=== PATIENT | female | born 1985 | race Hispanic/Latino ===

== ENCOUNTER 2023-06-10 13:35 | Emergency (ER) | payer OTHER, SELFPAY ==
--- NOTE | ~2023-06-10 | XR_ITS ---
EXAMINATION: XR elbow LT min 3V DATE: 06/10/2023 15:28 INDICATION: Left elbow injury and pain. TECHNIQUE: 3 views of left elbow were obtained. COMPARISON: None. FINDINGS: Bone alignment is normal. No fracture. Joint spaces are normal. No elbow joint effusion. IMPRESSION: 1. No fracture. Reviewed, dictated and finalized at location A. L PIN WORKER IMPRESSION: 1. No fracture.
--- NOTE | ~2023-06-10 | XR_ITS ---
EXAMINATION: XR wrist LT min 3V DATE: 06/10/2023 15:28 INDICATION: Left wrist injury and pain. TECHNIQUE: 3 views of left wrist were obtained. COMPARISON: None. FINDINGS: Bone alignment is normal. No fracture. Joint spaces are normal. IMPRESSION: 1. Normal left wrist. Reviewed, dictated and finalized at location A. [employer] IMPRESSION: 1. Normal left wrist.
--- NOTE | ~2023-06-10 | CT_ITS ---
EXAMINATION: CT brain wo con DATE: 06/10/2023 15:19 INDICATION: Head injury. TECHNIQUE: Computed tomography (CT) of the head was performed without intravenous contrast. The mA wa s adjusted according to patient size. Iterative reconstruction technique was employed. The dose-lengt h product was 605.33 mGy-cm. COMPARISON: None FINDINGS: There is no intracranial hemorrhage, acute infarction, or abnormal intracranial mass lesion . The ventricles are normal in size. The paranasal sinuses are clear. The mastoid air cells are remedios l. The orbits are normal. IMPRESSION: 1. Normal brain. Reviewed, dictated and finalized at location A. LE SURFACE OPERATOR IMPRESSION: 1. Normal brain.
--- NOTE | ~2023-06-10 | XR_ITS ---
EXAMINATION: XR shoulder LT min 2V DATE: 06/10/2023 15:27 INDICATION: Left shoulder injury and pain. TECHNIQUE: 4 views of left shoulder were obtained. COMPARISON: None. FINDINGS: Bone alignment is normal. No fracture. Joint spaces are normal. IMPRESSION: 1. Normal left shoulder. Reviewed, dictated and finalized at location A. R BISQUE KILN IMPRESSION: 1. Normal left shoulder.
[2023-06-10 13:45] VITALS: BP 150/65; PULSE 64; RESP 16; TEMP 36.4; O2SAT 100
[2023-06-10] MEDS: ACETAMINOPHEN 500 MG TABLET 1000 MG PO (15:03)
--- NOTE | 2023-06-10 15:11 | ED.UPPEXIN ---
HPI - Extremity Injury (Upper) General Chief Complaint: Extremity Injury, Upper Stated Complaint: left arm pain Time Seen by Provider: 06/10/23 14:06 History of Present Illness HPI narrative: 38-year-old female presents to the emergency department after head injury that occurred today at work. Patient states a [id number] door fell onto her head. She is reporting pain to her left parietal area. Also states that hit her left upper extremity. She is reporting pain or shoulder, proximal forearm and wrist. Denies loss of consciousness, focal numbness or weakness. She is not anticoagulated. Related Data Allergies Allergy/AdvReac Type Severity Reaction Status Date / Time No Known Allergies Allergy Verified 06/10/23 14:01 Review of Systems Review of Systems: CONSTITUTIONAL: Denies fever, chills, or sweats. EYES: Denies visual changes, redness, or discharge. ENT: Denies rhinorrhea, congestion, sore throat, or otalgia. CARDIOVASCULAR: Denies chest pain, palpitations, or edema. RESPIRATORY: Denies cough or dyspnea. GASTROINTESTINAL: Denies abdominal pain, nausea, vomiting, or diarrhea. GENITOURINARY: Denies dysuria or hematuria. SKIN: Denies rash or itching. MUSCULOSKELETAL: See HPI NEUROLOGIC: see HPI PSYCHIATRIC: Denies anxiety or depression. Exam Narrative: GENERAL: Well-appearing, well-nourished, and in no acute distress. HEAD: Normocephalic, atraumatic. tenderness to the left parietal scalp without overlying hematoma, ecchymosis, laceration or abrasion. EYES: PERRLA and EOMI. ENT: Nares clear, no rhinorrhea or epistaxis. Mucous membranes moist. NECK: Supple. CHEST: Clear to auscultation. No respiratory distress. HEART: Regular rate and rhythm. No murmur heard. Normal peripheral pulses. ABDOMEN: Soft, nontender, nondistended, normal active bowel sounds. EXTREMITIES: Generalized tenderness to the left shoulder, proximal forearm and distal radius. There is ecchymosis , superficial abrasions and mild swelling to the proximal radius with tenderness to palpation. No tenderness to metacarpals or fingers. No scaphoid tenderness. Radial pulse 2 +. Sensation intact throughout. SKIN: Warm, dry, no rash. NEURO: No focal deficits. Alert and oriented x3. Cranial nerves 2-12 intact. Strength 5/5 in BUE and BLE. Sensation intact throughout. Course Vital Signs Vital signs: Vital Signs Temperature 97.6 F 06/10/23 13:45 Pulse Rate 64 06/10/23 13:45 Respiratory Rate 16 06/10/23 13:45 Blood Pressure 150/65 H 06/10/23 13:45 Pulse Oximetry 100 06/10/23 13:45 Temperature 97.6 F 06/10/23 13:45 Pulse Rate 64 06/10/23 13:45 Respiratory Rate 16 06/10/23 13:45 Blood Pressure 150/65 H 06/10/23 13:45 Pulse Oximetry 100 06/10/23 13:45 MDM - Extremity Injury (Upper) MDM Narrative Medical decision making narrative: 38-year-old female presents to the emergency department after a head injury and pain to her left upper extremity after an injury that occurred at work earlier today. See HPI for further history. Triage vital significant for elevated blood pressure, otherwise unremarkable. She is neurovascularly intact. Exam is significant for the above. CT brain is unremarkable. X-rays of the left shoulder, elbow and wrist are unremarkable. Imaging discussed with the patient. Discussed strict ED return precautions and concussion management. Encouraged close follow-up with PCP. She is agreeable with the plan verbalized understanding. Discharged in stable condition Discharge Plan Discharge Clinical Impression: Closed head injury Qualifiers: Encounter type: initial encounter Qualified Code(s): S09.90XA - Unspecified injury of head, initial encounter Contusion of forearm Qualifiers: Encounter type: initial encounter Laterality: left Qualified Code(s): S50.12XA - Contusion of left forearm, initial encounter Patient Disposition: Home, Self-Care Condition: Stable Inst
[2023-06-10 16:21] VITALS: BP 126/90; PULSE 58; RESP 14; TEMP 36.4; O2SAT 100
== END 2023-06-10 16:23 | disposition home or self-care (01) ==
PROVIDERS: Emergency Provider Physician Assistant
DX: S09.90XA Unspecified injury of head, initial encounter (principal); S50.12XA Contusion of left forearm, initial encounter; W20.8XXA Other cause of strike by thrown, projected or falling object, initial encounter
CPT/HCPCS: 70450; 73030; 73080; 73110; 99284; A9270

== ENCOUNTER 2023-08-17 17:55 | Emergency (ER) | payer SELFPAY ==
--- NOTE | ~2023-08-17 | US_ITS ---
EXAMINATION: US OB <=14 wk fetus w TV INDICATION: vag bleeding X2w, +beta, r/o ectopic TECHNIQUE: Sonography of the pelvis was performed by transabdominal and transvaginal techniques. COMPARISON: None. RESULT: Uterus: 10.8 x 5.1 x 8.2 cm. Anteverted. 2.4 cm anterior intramural fibroid. 11 mm endometrial thickn ess. Multiple nabothian cysts. Intrauterine gestational sac: Not seen. Right ovary: 2.5 x 1.3 x 2.2 cm. Vascular flow is present. No adnexal mass. Left ovary: 4.3 x 1.8 x 2.0 cm. Vascular flow is present. No adnexal mass. Pelvis free fluid: None. IMPRESSION: Positive test with no intrauterine gestational sac visualized. Findings represent pregnanc y of unknown location. Differential diagnosis includes early normal, failed early, or ectopic pregna ncy. Recommend follow-up serial beta-hCG values. Ultrasound follow-up should be considered as clini jefferson warranted. Reviewed, dictated and finalized at location K. IMPRESSION: Positive test with no intrauterine gestational sac visualized. Findi ngs represent of unknown location. Differential diagnosis includes e linda normal, failed early, or ectopic . Recommend follow-up serial be ta-hCG values. Ultrasound follow-up should be considered as clinically warrant ed.
[2023-08-17 18:10] VITALS: BP 144/86; PULSE 73; RESP 20; TEMP 36.2; O2SAT 100
[2023-08-17 20:52] LABS: Basophils Percent Auto 0.5 % (0.2-1.2); Eosinophils Absolute Auto 0.2 K/mm3 (0-0.3); Eosinophils Percent Auto 2.4 % (0-4.4); Hematocrit 35.1 % (37.0-47.0); Hemoglobin 11.8 g/dL (12.0-15.0); Immature Granulocyte Absolute 0.02 K/mm3 (0.00-0.031); Immature Granulocyte Percent A 0.3 % (0-0.5); Lymphocytes Absolute Auto 2.22 K/mm3 (0.9-3.2); Lymphocytes Percent Auto 35.1 % (18.3-44.2); Mean Corpuscular HGB Conc 33.6 g/dl (32-36); Mean Corpuscular Hemoglobin 30.2 pg (26-34); Mean Corpuscular Volume 89.8 fl (80-100); Mean Platelet Volume 12.8 fl (7.4-10.4); Monocytes Absolute Auto 0.5 K/mm3 (0.1-0.6); Monocytes Percent Auto 7.4 % (2.6-8.5); Neutrophils Absolute Auto 3.4 K/mm3 (1.3-6.7); Neutrophils Percent Auto 54.3 % (45.5-73.1); Platelet Count Result 129 k/mm3 (150-375); Red Blood Count 3.91 M/mm3 (4.2-5.4); Red Cell Distribution Width 13.2 % (11.5-14.5); White Blood Count 6.3 K/mm3 (4.5-10.0)
[2023-08-17 21:02] LABS: Alanine Aminotransferase 29 U/L (6-35); Albumin Level 4.3 g/dL (3.5-5.1); Alkaline Phosphatase 61 U/L (38-126); Anion Gap 7 mmol/L (4-12); Aspartate Amino Transferase 33 U/L (14-36); Bilirubin,Total 0.3 mg/dL (0.2-1.3); Blood Urea Nitrogen 13 mg/dL (7-17); Carbon Dioxide 25 mmol/L (22-30); Chloride 108 mmol/L (98-107); Estimated CRCL calculation 111 ml/min; Estimated Glomerular Filt Rate > 60; Glucose 116 mg/dL (65-110); Potassium 3.5 mmol/L (3.4-5.0); Sodium 140 mmol/L (137-145)
[2023-08-17 21:08] LABS: Appearance Urine Clear (Clear); Bacteria Urine None Seen /hpf; Bilirubin Urine Negative (Negative); Blood Urine 3+ (Negative); Color Urine Yellow (Yellow); Glucose Urine UA Negative (Negative); Ketones Urine Trace mg/dL (Negative); Leukocyte Esterase Ur Negative LEU/UL (Negative); Nitrate Urine Negative (Negative); Non Pathogenic Casts 0-2; Protein Urine Negative (Negative); RBC Urine >100 /hpf (0-2); Specific Grav Ur 1.023 (1.001-1.035); Squamous Epithelial Cell Urine None Seen /hpf (Few); Urobilinogen Urine 0.2 mg/dL (<2.0); WBC Urine 0-5 /hpf (0-3); pH Urine 5.5 (5.0-9.0)
--- NOTE | 2023-08-17 21:13 | ED.PREGNANCY ---
HPI - General Chief complaint: Vaginal Bleeding Stated complaint: vaginal bleeding Time Seen by Provider: 08/17/23 20:09 Source: patient Mode of arrival: ambulatory Limitations: no limitations History of Present Illness HPI Narrative: Patient is a 38-year-old female who presents the ED with report of abnormal vaginal bleeding. Patient is primarily Lithuanian speaking. Family at bedside assisted in translation. [employer] support director was offered and declined. Patient reports having persistent vaginal bleeding for the last 2-3 weeks. States bleeding began initially a few days after when she was scheduled to start her normal menstrual cycle. States it was heavy at first but has since lightened. She took a few home tests which were negative. She then passed a large firm dark red blood clot, which prompted her presentation. She c/o intermittent cramping throughout her lower abdomen, intermittent nausea. Denies any dizziness, lightheadedness, syncope, dysuria. Patient sees Dr. Russell with OBGYN in [place]. Has not tried contacting him. Related Data Allergies Allergy/AdvReac Type Severity Reaction Status Date / Time No Known Allergies Allergy Verified 08/17/23 18:16 Review of Systems Review of Systems: CONSTITUTIONAL: Denies fever, chills, or sweats. GASTROINTESTINAL: See HPI. GENITOURINARY: See HPI. MUSCULOSKELETAL: Denies back pain, extremity pain, myalgia. NEUROLOGIC: Denies headache, dizziness, numbness, or weakness. All systems reviewed & are unremarkable except as noted in HPI and below Exam Narrative: GENERAL: Well appearing, well-nourished, non-toxic, in no acute distress. HEAD: Normocephalic, atraumatic. RESPIRATORY: Airway patent, respirations nonlabored. Clear to auscultation bilaterally, no rales, rhonchi, wheezing. CARDIOVASCULAR: Regular rate and rhythm without murmurs, rubs, or gallops. ABDOMINAL: Soft, mild tenderness throughout lower abdomen, worse on R side, nondistended. Normoactive BS. PELVIC: Normal external genitalia. Cervix appears open, multiparous. Quarter-size dark red clot coming from cervix, easily removed with ring forceps. Smaller clots noted within vaginal vault, no evidence of hemorrhage or pooling of fluid. No significant CMT. No genital lesions. MUSCULOSKELETAL: Moves all extremities. No gross deformities. SKIN: Warm, dry, normal color. NEURO: A&O X3. Speech clear. PSYCHIATRIC: Appropriate mood and affect. Normal interaction. Course Vital Signs Vital signs: Vital Signs Temperature 97.1 F L 08/17/23 18:10 Pulse Rate 73 08/17/23 18:10 Respiratory Rate 20 08/17/23 18:10 Blood Pressure 144/86 H 08/17/23 18:10 Pulse Oximetry 100 08/17/23 18:10 Oxygen Delivery Room Air 08/17/23 18:10 Temperature 97.1 F L 08/17/23 18:10 Pulse Rate 73 08/17/23 18:10 Respiratory Rate 20 08/17/23 18:10 Blood Pressure 144/86 H 08/17/23 18:10 Pulse Oximetry 100 08/17/23 18:10 Oxygen Delivery Room Air 08/17/23 18:10 MDM - OB/Uterine Contractions MDM Narrative Medical decision making narrative: Patient presented to ED with several week history of vaginal bleeding, began a few days after her scheduled start date of her normal cycle, though has had negative home preg tests. VSS upon arrival. Patient in no acute distress. Cbc without leukocytosis. Minimal anemia 11.8. No records to compare to. Platelets minimally low at 129. CMP unremarkable. Urinalysis with evidence of blood, no signs of infection. Beta quant resulted elevated at 1533. This makes patient G3 P 2. Blood type is A+. No indication for RhoGAM. OB US obtained to r/o ectopic, does not show evidence of any intrauterine gestational sac. Suspicious for spontaneous . No evidence of ectopic. Pelvic exam showed open cervix, clots coming from cervix, removed with ring forceps, no evidence of hemorrhage or pooling of fluid. Discussed lab and imaging findings with patien
[2023-08-17 21:15] LABS: Add Urine Microscopic? YES
== END 2023-08-18 00:58 | disposition home or self-care (01) ==
PROVIDERS: Emergency Provider Physician Assistant
DX: O03.9 Complete or unspecified spontaneous abortion without complication (principal)
CPT/HCPCS: 36415; 76801; 76817; 80053; 81001; 84702; 85025; 86850; 86900; 86901; 99284

== ENCOUNTER 2023-08-27 21:53 | Emergency (ER) | payer SELFPAY ==
[2023-08-27 22:05] VITALS: BP 119/73; PULSE 68; RESP 18; TEMP 36.6; O2SAT 98
[2023-08-27 23:12] LABS: Basophils Percent Auto 0.6 % (0.2-1.2); Eosinophils Absolute Auto 0.2 K/mm3 (0-0.3); Hematocrit 34.7 % (37.0-47.0); Hemoglobin 11.4 g/dL (12.0-15.0); Immature Granulocyte Absolute 0.02 K/mm3 (0.00-0.031); Immature Granulocyte Percent A 0.3 % (0-0.5); Lymphocytes Absolute Auto 2.37 K/mm3 (0.9-3.2); Lymphocytes Percent Auto 32.8 % (18.3-44.2); Mean Corpuscular HGB Conc 32.9 g/dl (32-36); Mean Corpuscular Hemoglobin 29.6 pg (26-34); Mean Corpuscular Volume 90.1 fl (80-100); Mean Platelet Volume 12.7 fl (7.4-10.4); Monocytes Absolute Auto 0.8 K/mm3 (0.1-0.6); Monocytes Percent Auto 10.4 % (2.6-8.5); Neutrophils Absolute Auto 3.8 K/mm3 (1.3-6.7); Neutrophils Percent Auto 52.9 % (45.5-73.1); Platelet Count Result 129 k/mm3 (150-375); Red Blood Count 3.85 M/mm3 (4.2-5.4); Red Cell Distribution Width 12.7 % (11.5-14.5); White Blood Count 7.2 K/mm3 (4.5-10.0)
[2023-08-27 23:13] LABS: Appearance Urine Clear (Clear); Bilirubin Urine Negative (Negative); Blood Urine Negative (Negative); Color Urine Yellow (Yellow); Glucose Urine UA Negative (Negative); Ketones Urine Negative (Negative); Leukocyte Esterase Ur Negative LEU/UL (Negative); Nitrate Urine Negative (Negative); Protein Urine Negative (Negative); Urobilinogen Urine 0.2 mg/dL (<2.0); pH Urine 6.5 (5.0-9.0)
[2023-08-27 23:18] LABS: Alanine Aminotransferase 49 U/L (6-35); Albumin Level 4.1 g/dL (3.5-5.1); Alkaline Phosphatase 69 U/L (38-126); Anion Gap 5 mmol/L (4-12); Aspartate Amino Transferase 63 U/L (14-36); Bilirubin,Total 0.4 mg/dL (0.2-1.3); Blood Urea Nitrogen 16 mg/dL (7-17); Calcium 8.9 mg/dL (8.4-10.2); Carbon Dioxide 25 mmol/L (22-30); Chloride 107 mmol/L (98-107); Estimated CRCL calculation 104 ml/min; Estimated Glomerular Filt Rate > 60; Glucose 159 mg/dL (65-110); Sodium 137 mmol/L (137-145)
[2023-08-27 23:31] LABS: Specific Grav Ur 1.004 (1.001-1.035)
[2023-08-27 23:32] LABS: Add Urine Microscopic? NO
--- NOTE | 2023-08-28 00:30 | ED.FEMALEGU ---
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 Patient is primarily Divehi speaking. Daughter at bedside assisted in providing information. [employer] translator interpreter offered and declined. Patient was recently seen in the ED here for spontaneous miscarriage. States bleeding has since resolved. She has followed up with an OBGYN. Today while straining to have a bowel movement, she felt something coming out of her vagina. She states it was hard. She did not look at it. When she quit straining, the sensation resolved. She no longer feels as though anything is coming off her vagina. She reports last bowel movement was 3 days ago. Denies significant issues with constipation. Does have history of hemorrhoids, intermittent rectal bleeding with wiping. Denies significant bleeding or melena. Denies abdominal pain, nausea, vomiting, fevers, difficulty urinating, dysuria. Related Data Allergies Allergy/AdvReac Type Severity Reaction Status Date / Time No Known Allergies Allergy Verified 08/27/23 22:13 Review of Systems Review of Systems: CONSTITUTIONAL: Denies fever, chills, or sweats. GASTROINTESTINAL: Denies abdominal pain, nausea, vomiting, or diarrhea. GENITOURINARY: See HPI. All systems reviewed & are unremarkable except as noted in HPI and below Exam Narrative: GENERAL: Well appearing, well-nourished, non-toxic, in no acute distress. HEAD: Normocephalic, atraumatic. RESPIRATORY: Airway patent, respirations nonlabored. Clear to auscultation bilaterally, no rales, rhonchi, wheezing. CARDIOVASCULAR: Regular rate and rhythm without murmurs, rubs, or gallops. ABDOMINAL: Soft, no significant tenderness throughout lower abdomen, nondistended. Normoactive BS. MUSCULOSKELETAL: Moves all extremities. No gross deformities. SKIN: Warm, dry, normal color. NEURO: A&O X3. Speech clear. PSYCHIATRIC: Appropriate mood and affect. Normal interaction. Course Vital Signs Vital signs: Vital Signs Temperature 98 F 08/27/23 22:05 Pulse Rate 68 05/17/24 22:05 Respiratory Rate 18 08/27/23 22:05 Blood Pressure 119/73 08/27/23 22:05 Pulse Oximetry 98 08/27/23 22:05 Oxygen Delivery Room Air 08/27/23 22:05 Temperature 98 F 08/27/23 22:05 Pulse Rate 68 08/27/23 22:05 Respiratory Rate 18 08/27/23 22:05 Blood Pressure 119/73 08/27/23 22:05 Pulse Oximetry 98 08/27/23 22:05 Oxygen Delivery Room Air 08/27/23 22:05 MDM - Female Genitourinary MDM Narrative Medical decision making narrative: Patient presented to ED with concern for a gynecologic issue, recent spontaneous miscarriage, seen in ED here. States bleeding has since resolved. Beta quant today 8.4. Low suspicion for further issue with marriage, low suspicion for ectopic. Patient is not having any significant abdominal pain. She states bleeding has resolved. Consistent with down trending beta HCG after miscarriage. Remainder basic laboratory studies are unremarkable. Stable H&H. Urinalysis is negative. Pelvic exam performed in the ED without concerning findings. Did show evidence of likely cystocele when patient beared down on pelvic exam. Mucosa intact. No lesions, skin inflammation. No vaginal bleeding. Discussed likely diagnosis with the patient. Discussed avoiding constipation in the future, to avoid further straining to cause cystocele to worsen. Discussed constipation management. Advised patient have close follow-up with OBGYN for further evaluation. Also discussed that patient should continue to follow-up with OBGYN for repeat hormone testing until her levels are down to 0. Pat
== END 2023-08-28 01:45 | disposition home or self-care (01) ==
PROVIDERS: Emergency Provider Physician Assistant
DX: N81.11 Cystocele, midline (principal)
CPT/HCPCS: 36415; 80053; 81003; 84702; 85025; 99284